=== PATIENT | female | born 1950 | race Caucasian/White ===

== ENCOUNTER 2021-03-03 06:04 | Day surgery (SDC) | payer MEDICARE ==
[2021-03-02 12:04] VITALS: BP 194/98
[2021-03-03] VITALS (11 sets, daily range): BP systolic 129–180; BP diastolic 42–83
[~2021-03-03] VITALS: Ht 165.1 cm; Wt 59.0 kg
[~2021-03-03 06:04] MED LIST: LEVO125C4 PO; MESA1.2T3 PO; METO-408 PO; OMEP20TA25 PO; PILOC5 PO; TOPI25TA48 PO
[2021-03-03] MEDS ORDERED: LIDOCAINE 1%-EPI 1:100,000 20 ML VIAL IJ ONE (06:52)
[2021-03-03] MEDS ORDERED: LIDOCAINE PF 100MG/5ML (2%) SYRINGE 5ML ONE (07:17)
[2021-03-03] MEDS ORDERED: PROPOFOL 10 MG/ML 20ML VIAL IV ONE (07:18)
[2021-03-03] MEDS ORDERED: FENTANYL CITRATE PF 50 MCG/1 ML 2ML VIAL ONE (07:18)
[2021-03-03] MEDS ORDERED: LACTATED RINGERS 1000ML 1,000 ML IV ONE (07:23)
[2021-03-03] MEDS ORDERED: MIDAZOLAM HCL 1 MG/ML 2ML VIAL ONE (07:33)
[2021-03-03] MEDS ORDERED: BACITRACIN 28.4 GM OINT TP ONE (08:06)
== END 2021-03-03 09:19 | disposition home or self-care (01) ==
LOC: DAH 06:04
PROVIDERS: ATTEND Otolaryngology Plastic Surgery within the Head & Neck
DX: M72.6 Necrotizing fasciitis (principal); Z20.822 Contact with and (suspected) exposure to COVID-19; I12.9 Hypertensive chronic kidney disease with stage 1 through stage 4 chronic kidney disease, or unspecified chronic kidney disease; N18.9 Chronic kidney disease, unspecified; E03.9 Hypothyroidism, unspecified; K21.9 Gastro-esophageal reflux disease without esophagitis; Z90.710 Acquired absence of both cervix and uterus; Z90.49 Acquired absence of other specified parts of digestive tract; Z98.890 Other specified postprocedural states; Z87.891 Personal history of nicotine dependence
CPT/HCPCS: 14041; 88304; 88312; A4215 ×2; A4221; A4222; A4223; A4606; A4663; A6260; A6402; C9803; J2001; J2250; J2704; J3010; J3490; J7120; U0003